=== PATIENT | male | born 1970 | race Caucasian/White ===

== ENCOUNTER 2019-07-04 11:19 | Emergency (ER) | payer OTHER, SELFPAY ==
[2019-07-04 11:20] VITALS: BP 109/71; PULSE 88; RESP 16; TEMP 36.8; O2SAT 99; BMI 26.9
== END 2019-07-04 13:00 ==
LOC: ED 12:06
PROVIDERS: Emergency Provider Emergency Medicine
DX: Z00.00 Encounter for general adult medical examination without abnormal findings (principal)

== ENCOUNTER 2019-07-12 11:58 | Emergency (ER) | payer OTHER, SELFPAY ==
[2019-07-12] VITALS (9 sets, daily range): BP systolic 83–152; BP diastolic 55–99; PULSE 18–113; RESP 14–18; TEMP 36; O2SAT 98–100; BMI 26.2
--- NOTE | 2019-07-12 12:23 | ED.DCSUM_ITS ---
- ER Visit Summary Date of Service: 07/12/19 Chief Complaint: Mental health evaluation History of Present Illness: The patient is a 48 M underlying psychiatric history. Patient states he has situational disorder. He is currently on an improvement plan at work. He has not been doing as well recently. He is causing trouble all over the community. [place] [employer] was alerted by the [facility] of issues and the patient was brought in. He does follow-up with counseling. Patient is unhappy to be in the emergency department this time. Physical Examination: Middle-aged male. No acute distress. Vital signs are stable and afebrile. H EENT exam atraumatic. I do not smell any alcohol. Pupils round react light. Neck nontender no lymphadenopathy. No meningismus. Lungs clear to auscultation bilaterally. Heart regular rhythm no murmur. Abdomen soft and nontender. Normal bowel sounds no peritoneal signs. Chest were nontender. Back nontender. Patient moving all 4 extremities. Neurovascular intact. Normal range of motion. Normal strength. Neurologically is awake and alert with no focal motor deficits. Skin there is no rashes and no track bull. Test Results: CBC White count 13. Normal hemoglobin. No bands. Chemistries normal normal creatinine gap. Glucose 102. Alcohol negative. Urine tox screen still pending. Emergency Department Course and Treatment: Patient undergo ED mental evaluation. During his ER evaluation within the first hour patient became more more agitated. Started screaming and cussing. The concern was both for his own safety and that the staff. Also he was a flight risk. We tried to verbally de- escalate him which was not working. He was treated with IM Geodon and also four-point restraints. Treatment Plan: Currently resting comfortably in restraints and treated with Geodon. Pending crisis evaluation Disposition: Transfer to a psychiatric facility yet to be determined Impression: Acute exacerbation of underlying illness This note was generated with Silenseed dictation software. It may contain incorrect words, spelling, and punctuation that were not noted in review of the chart prior to signing ED Disposition - Plan for ED Patient: Referrals: Care Physician,No Primary [Primary Care Provider] -
--- NOTE | 2019-07-12 12:35 | CM.ED ---
SOCIAL WORK DISCUSSED CASE WITH [employer] OFFICER, ROSETTE. OFFICER ROSETTE COMPLETED PINK SLIP AND REPORTS PATIENT IS KNOWN TO THE [facility]. PATIENT WITH PARANOID DELUSIONS. COLLABORATION WITH DR. GONZALES. CRISIS TO EVALUATE ONCE MEDICALLY CLEARED. Blaine CURRY, FUELS ENGINEER, ELECTRICIAN OUTSIDE.
--- NOTE | 2019-07-12 12:43 | ED.RN ---
pt arrives to ed with known mental health hx. was transported by multiple officers to ed. he was pink slipped by [employer] officer. belongings were placed into a secure locate and inventoried. pt was placed into a gown and socks. per [employer] officer and as witnessed by staff he escalates quickly. sitter ordered obtained to assist in de-escalation and maintain safety of staff and visitor in the department. during assessment by ed dr and rn he quick became loud and agitated. giovanna wells rn [id number]
--- NOTE | 2019-07-12 13:20 | CM.ED ---
SOCIAL WORK RECEIVED CALL FROM [facility] WITH CRISIS. UPDATED ON PATIENT. FACILITATED PHONE CALL WITH [employer] AND OFFICER ROSETTE. Blaine CURRY, REPORTER, ALTERNATIVE FINANCING SPECIALIST.
[2019-07-12] MEDS: Ziprasidone IM 20 MG/ML VIAL IM (13:26)
[2019-07-12 13:46] LABS: Anion Gap 8 (5-15); BUN 10 mg/dL (7-18); BUN/Creat Ratio 10.4 RATIO (10-20); Calcium,Total 9.3 mg/dL (8.5-10.1); Chloride 102 mmol/L (98-107); Creatinine, Serum 0.96 mg/dL (0.70-1.30); EST Glomerular Filtration Rate 89 mL/min (>60); Est Glom Filt Rate - Afr Amer 108 mL/min (>60); Estimated Creatinine Clearance 96.15 ml/min; Glucose 102 mg/dL (74-106); Potassium 3.9 mmol/L (3.5-5.1); Sodium Level 136 mmol/L (136-145)
[2019-07-12 13:51] LABS: Absolute Lymphocyte Count 2.48 X10^3/uL (0.83-4.51); Basophil# 0.08 X10^3/uL; Basophil% 0.6 % (0-1); Eosinophil# 0.43 X10^3/uL; Eosinophils% 3.3 % (0-5); Hematocrit 43.5 % (40-54); Hemoglobin 14.6 g/dL (13.0-16.5); Lymphocyte # 2.48 X10^3/ul (4.0); Lymphocyte % 19.2 % (19-41); Mean Corp Hgb Conc 33.6 g/dL (32-36); Mean Corpuscular Hgb 32.1 pg (27.0-32.0); Mean Corpuscular Volume 95.6 fL (80-94); Mean Platelet Vol. 10.7 fl (6.2-12.0); Monocyte# 0.93 X10^3/uL; Monocyte% 7.2 % (0-10); NRBC Flagged by Analyzer 0 % (0-5); Neutrophil # 8.98 X10^3/uL (2.7-7.7); Neutrophil % 69.3 % (47-70); Platelet Count 252 K/mm3 (150-450); RBC Distribution Width CV 12.4 % (11.6-14.6); RBC Distribution Width SD 43.8 fl (35.1-43.9); Red Blood Count 4.55 M/mm3 (4.6-6.2)
[2019-07-12 13:57] LABS: Alcohol, Blood (Medical)-Serum < 3.0 mg/dL
[2019-07-12 14:27] LABS: Amphetamine Urine VISTA NEGATIVE (<1000 ng/mL); Barbiturate Urine VISTA NEGATIVE (< 200 ng/mL); Benzodiazepine Urine VISTA NEGATIVE (< 200 ng/mL); Cocaine Urine VISTA NEGATIVE (< 300 ng/mL); Ecstacy Urine VISTA NEGATIVE (< 500 ng/mL); Methadone Urine VISTA NEGATIVE (< 300 ng/mL); PCP Urine VISTA NEGATIVE (< 25 ng/mL); THC Urine VISTA POSITIVE (< 50 ng/mL); Vista UDS pH Range 6
--- NOTE | 2019-07-12 17:01 | NURSING ---
CRISIS CALLED AND WILL BE OVER SOON
--- NOTE | 2019-07-12 17:22 | NURSING ---
SANDI, CRISIS,HERE
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
--- NOTE | 2019-07-12 21:26 | CT_ITS ---
HISTORY: Confusion. Technique: Contiguous helical images through the brain. Comparison study most recently is from October 28, 2015. Findings: Brain volume is normal. Martins-white differentiation is normal. No hydrocephalus. No acute ischemia is perceived. No acute intracranial hemorrhage is discerned. CT/Brain/Head without Contrast IMPRESSION: Normal.. Individualized dose optimization techniques were used for this CT. at 2220 Reported and signed by: Raffaele Calderón MD Electronically Signed: Raffaele Calderón MD at 22:19 EDT Tel , Service support ,
--- NOTE | 2019-07-12 21:26 | NURSING ---
[facility] CALLED AND SAID [facility] REQUESTED A CT OF HEAD BEFORE ACCEPTANCE. TOLD NURSE
--- NOTE | 2019-07-12 22:34 | NURSING ---
FAXED CT RESULTS TO [facility]
--- NOTE | 2019-07-12 23:15 | NURSING ---
ACCEPTED TO [facility] BY DR. DEXTER TO THE [facility] [phone] REPORT
[2019-07-13 00:17] VITALS: RESP 18
[2019-07-13 01:00] VITALS: RESP 16
[2019-07-13 02:00] VITALS: RESP 18
[2019-07-13 03:28] VITALS: RESP 16
[2019-07-13 06:38] VITALS: BP 124/80; PULSE 102; RESP 18; O2SAT 98
--- NOTE | 2019-07-13 06:44 | NURSING ---
pt upset about pink slip from [employer] police. explained to patient multiple times that the pink slipped can't be changed. Dr. Ríos also was in room and explained to patient plan of care. after multiple attempts, patient understood that he will be getting transferred to [place]. Patient given breakfast sandwich, coffee, bath wipes, and a new gown.
[2019-07-13 07:11] VITALS: RESP 16
== END 2019-07-13 07:59 ==
PROVIDERS: Emergency Provider Emergency Medicine
DX: R41.0 Disorientation, unspecified (principal); R45.1 Restlessness and agitation
CPT/HCPCS: 70450; 80048; 80307; 80320; 85025; 96372; 99285; G0480; J3486

== ENCOUNTER 2022-04-10 13:05 | Emergency (ER) | payer OTHER, SELFPAY ==
[2022-04-10] VITALS (9 sets, daily range): BP systolic 123–147; BP diastolic 76–99; PULSE 68–80; RESP 12–20; TEMP 36.5–36.9; O2SAT 97–98; BMI 26.6
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
[2022-04-10 13:57] LABS: Mucous, Urine 0 SEEN /hpf (<or=2+); Red Blood Cells-Urine 0 SEEN /hpf (0-5); Squamous Epithelial Cells - UA 0 SEEN /hpf (0-5)
[2022-04-10 14:07] LABS: Absolute Lymphocyte Count 1.99 X10^3/uL (0.83-4.51); Absolute Neutrophil Count 6.8 X10^3/uL (2.0-7.7); Basophil# 0.07 X10^3/uL; Basophil% 0.7 % (0-1); Eosinophil# 0.34 X10^3/uL; Eosinophils% 3.4 % (0-5); Hematocrit 41.3 % (40-54); Lymphocyte # 1.99 X10^3/ul (0.83-4.51); Lymphocyte % 19.8 % (19-41); Mean Corp Hgb Conc 33.9 g/dL (32-36); Mean Corpuscular Hgb 32.3 pg (27.0-32.0); Mean Corpuscular Volume 95.2 fL (80-94); Mean Platelet Vol. 10.3 fl (6.2-12.0); Monocyte# 0.76 X10^3/uL; Monocyte% 7.6 % (0-10); NRBC Flagged by Analyzer 0 % (0-5); Neutrophil # 6.83 X10^3/uL (2.7-7.7); Neutrophil % 68.1 % (47-70); Platelet Count 257 K/mm3 (150-450); RBC Distribution Width CV 12.8 % (11.6-14.6); RBC Distribution Width SD 44.6 fl (35.1-43.9); Red Blood Count 4.34 M/mm3 (4.6-6.2)
[2022-04-10 14:08] LABS: Color, Urine Yellow (Yellow); Glucose, Dipstick Normal (Normal); Ketone-Dipstick 5 mg/dl (Negative); Leukocyte Esterase-Dipstick 500 /ul (Negative); Nitrite-Dipstick Negative (Negative); Occult Blood-Urine Negative /ul (Negative); Protein-Dipstick 15 mg/dl (Negative); Urine Bilirubin Dipstick Negative (Negative); Urine Clarity Clear (Clear); Urine Urobilinogen Normal (Normal)
[2022-04-10 14:18] LABS: AST(SGOT) 30 U/L (15-37); Alanine Aminotransfer ALT/SGPT 43 U/L (16-61); Albumin, Serum 3.9 g/dL (3.2-5.0); Alkaline Phosphatase 66 U/L (45-117); Anion Gap 5 (5-15); BUN 11 mg/dL (7-18); BUN/Creat Ratio 12.4 RATIO (10-20); Calcium,Total 8.9 mg/dL (8.5-10.1); Chloride 108 mmol/L (98-107); Creatinine, Serum 0.89 mg/dL (0.70-1.30); EST Glomerular Filtration Rate 97 mL/min (>60); Est Glom Filt Rate - Afr Amer 117 mL/min (>60); Estimated Creatinine Clearance 97.13 ml/min; Globulin 3.9 g/dL (2.2-4.2); Glucose 111 mg/dL (74-106); Potassium 3.7 mmol/L (3.5-5.1); Protein, Total 7.8 g/dL (6.4-8.2); Sodium Level 140 mmol/L (136-145)
[2022-04-10 14:20] LABS: Amphetamine Urine VISTA NEGATIVE (<1000 ng/mL); Barbiturate Urine VISTA NEGATIVE (< 200 ng/mL); Benzodiazepine Urine VISTA NEGATIVE (< 200 ng/mL); Cocaine Urine VISTA NEGATIVE (< 300 ng/mL); Ecstacy Urine VISTA NEGATIVE (< 500 ng/mL); Methadone Urine VISTA NEGATIVE (< 300 ng/mL); PCP Urine VISTA NEGATIVE (< 25 ng/mL); THC Urine VISTA POSITIVE (< 50 ng/mL); Vista UDS pH Range 5
[2022-04-10 14:22] LABS: Alcohol, Blood (Medical)-Serum < 3.0 mg/dL
[2022-04-10 14:28] LABS: Bacteria 1+ /hpf (None Seen); White Blood Cells 25-50 SEEN /hpf (0-5)
--- NOTE | 2022-04-10 15:11 | NURSING ---
CALLED CRISIS. WILL FAX CHART TO OFFICE
--- NOTE | 2022-04-10 16:01 | NURSING ---
CALLED [facility]. [facility] ARE VERIFYING [facility] HAS [facility]
--- NOTE | 2022-04-10 16:21 | ED.RN ---
THIS RN WAS NOTIFIED BY THE SITTER THAT THE PATIENT WAS REPEATEDLY MESSING WITH SHARPS CONTAINER AFTER ATTEMPTING TO THROW AWAY PAPER TOWEL IN IT. HE STATES IT NEEDS CLOSED AND CONTINUES TO APPROACH THE CONTAINER AFTER ALREADY BEING TOLD WHAT ITS FUNCTION IS AND TO STAY AWAY FROM IT. THIS RN REMOVES SHARPS CONTAINER FROM [place] ON THE WALL AND PLACES IT IN DIRTY UTILITY ROOM OUT OF PATIENT REACH.
--- NOTE | 2022-04-10 20:17 | EKG12_ITS ---
Test Reason : [facility] Blood Pressure : / mmHG Vent. Rate : 084 BPM Atrial Rate : 084 BPM P-R Int : 144 ms QRS Dur : 098 ms QT Int : 374 ms P-R-T Axes : 021 -17 038 degrees QTc Int : 441 ms Normal sinus rhythm Normal ECG Confirmed by ALYSIA ENCISO, RADHA ([id number]), editor continuity and script ANDREW ASHFORD ([id number]) on 04/12/2022 1:05:49 PM Referred By: TYRONE Confirmed By:RADHA HATFIELD MD
--- NOTE | 2022-04-10 23:06 | NURSING ---
ACCEPTED TO [facility] WILL BE HERE AT 6:30AM. [phone] REPORT
--- NOTE | 2022-04-10 23:22 | ED.RN ---
THIS RN ATTEMPTED TO CALL [facility] [place] PER FACILITY STAFF REPORT WILL NOT BE ACCEPTED UNTIL 0500.
[2022-04-11] VITALS (7 sets, daily range): BP systolic 128; BP diastolic 68; PULSE 76; RESP 16–18; O2SAT 98
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
== END 2022-04-11 09:29 ==
PROVIDERS: Emergency Provider Student in an Organized Health Care Education/Training Program; Visit Provider Student in an Organized Health Care Education/Training Program
DX: R41.0 Disorientation, unspecified (principal); R45.1 Restlessness and agitation; F12.10 Cannabis abuse, uncomplicated; F17.210 Nicotine dependence, cigarettes, uncomplicated
CPT/HCPCS: 80053; 80307; 81001; 82077; 85025; 87811; 93005; 99285